=== PATIENT | male | born 1985 | race Caucasian/White ===

== ENCOUNTER 2021-02-17 11:24 | Emergency (ER) | payer BC, SELFPAY ==
--- NOTE | ~2021-02-17 | CT_ITS ---
EXAMINATION: CT ABDOMEN AND PELVIS WITH CONTRAST CLINICAL INFORMATION: Abdominal pain and vomiting x12 days. COMPARISON: CT abdomen and pelvis with IV contrast 03/01/2015 TECHNIQUE: Multidetector volumetric images were obtained from the superior aspect of the liver through the pubic symphysis following administration 85 mL of Omnipaque 350 intravenous contrast. Sagittal and coronal reformatted images were obtained on the technologist's workstation. Oral contrast: No This CT examination was performed using dose optimization techniques as appropriate, variously including the following: *Automated exposure control *Adjustment of mA and/or kV according to patient size (this includes techniques or standardized protocols for targeted exams where dose is matched to indication/reason for exam; i.e. extremities or head) *Use of iterative reconstruction technique DLP: 523 mGy-cm FINDINGS: LUNG BASES: The lung bases are clear. The heart size is normal. LIVER, GALLBLADDER, AND BILIARY TREE: The liver is normal in size, shape, and attenuation. A small scattered hypodensities seen in the liver most likely small cyst. The largest on series cyst measures in the left hepatic lobe, axial image 12/3. No intrahepatic ductal dilatation seen. The gallbladder is unremarkable with no evidence of radiopaque gallstones, gallbladder wall thickening, or obvious pericholecystic inflammatory changes. PANCREAS: Unremarkable. SPLEEN: Unremarkable. ADRENAL GLANDS: Unremarkable. KIDNEYS AND URETERS: The kidneys are normal in size, shape, and attenuation. No hydronephrosis, hydroureter, or calculi seen. No perinephric stranding. There is a 9 mm cyst in the midpole left kidney. BLADDER: Unremarkable. GASTROINTESTINAL TRACT: Scattered stool and gas seen throughout the colon without any significant distention. The small bowel loops are normal caliber. The appendix is normal caliber. No free air or free fluid seen. ABDOMINAL WALL: A small umbilical hernia containing fat is noted. LYMPH NODES: Normal. VASCULAR: Unremarkable. PELVIC VISCERA: Unremarkable. OSSEOUS STRUCTURES: Unremarkable. CT/CT abdomen pelvis w con IMPRESSION: No acute intra-abdominal process seen. Mild constipation. Likely small cyst midpole left kidney. This was visualized on the previous exams 2014 Multiple small scattered hypodense liver lesions likely cysts. These are unchanged to previous exam 2015.
[2021-02-17 11:29] VITALS: BP 121/83; PULSE 99; RESP 18; TEMP 36.1; O2SAT 99; BMI 23.7
--- NOTE | 2021-02-17 16:07 | ED.ABDPAIN ---
HPI - Abdominal Pain General Chief Complaint: Abdominal Pain Stated Complaint: VOMITING Time Seen by Provider: 02/17/21 14:08 Source: patient Mode of arrival: ambulatory Limitations: no limitations History of Present Illness HPI narrative: 35 yo male with no sig PMH notes GI illness with n/v that resolved over the weekend notes he seemed okay on Wednesday and Wednesday but he vomited again this AM so decided to get checked out, has no risk factors, no sick contacts, no food exposures MD elicited complaint: other (nausea/vomiting) Onset (ago): day(s) (12) Severity: moderate Exacerbating factors: eating Relieving factors: nothing Associated symptoms: nausea, vomiting and other (weakness) Related Data Previous Rx's Medication Instructions Recorded famotidine [Pepcid] 20 mg PO DAILY PRN #30 tab 02/17/21 metoclopramide HCl [Reglan] 10 mg PO Q6H PRN #20 tab 02/17/21 ondansetron 4 mg PO Q8H PRN #20 tab 02/17/21 Allergies Allergy/AdvReac Type Severity Reaction Status Date / Time No Known Drug Allergies Allergy Mild NONE Unverified 06/13/20 18:27 [NO KNOWN DRUG ALLERGIES] Review of Systems Review of Systems Constitutional : No Weight loss, No Fever, No Chills ENT/Mouth : No sore throat, No Rhinorrhea Eyes: No Swelling, No Redness Cardiovascular : No Chest Pain, No SOB, NoEdema Respiratory : No Cough, No Sputum, No Wheezing Gastrointestinal : Positive Nausea, Positive Vomiting, no Diarrhea, no abdominal Pain, No Hematochezia, No Melena Genitourinary : No Dysuria, No Urinary Frequency, No Hematuria, No Urgency Musculoskeletal : No joint pain, No Myalgias, No Joint Swelling Skin : No Skin Lesions, No rash Neuro : pos Weakness, No Numbness, No Dizziness, No Headache Psych : No Anxiety/Panic, No Depression Heme/Lymph: No Bruising, No Lymphadenopathy Endocrine : No Polyuria, No Polydipsia All other systems reviewed and are negative. Physical Exam Vital Signs: Vital Signs: Last Vital Signs Temp 97 F 02/17/21 11:29 Pulse 99 02/17/21 11:29 Resp 18 02/17/21 11:29 BP 121/83 02/17/21 11:29 Pulse Ox 99 02/17/21 11:29 Body Mass Index 23.7 Appearance: Alert. Oriented X3. No acute distress. Eyes: Pupils equal, round and reactive to light. ENT: Pharynx dry MM Neck: Normal inspection. Neck supple. CVS: Normal heart rate and rhythm. Pulses normal. Respiratory: No respiratory distress. Breath sounds normal. Abdomen: Soft and non-tender. Skin: Skin warm and dry. Normal skin color. Normal skin turgor. Extremities: No lower extremity edema. No calf ttp Neuro: Oriented X 3. No motor deficit. No sensory deficit. Course Course Course Narrative: no acute findings at this time, labs stable, VS stable, no acute findings on CT scan MDM - Abdominal Pain MDM Narrative Medical decision making narrative: 35 yo male with no sig PMH notes GI illness with n/v that resolved over the weekend notes he seemed okay on Wednesday and Wednesday but he vomited again this AM so decided to get checked out, has no risk factors, no sick contacts, no food exposures at this time will need labs, IVF x 2L, anti emetics, obtain CT scan for occult infection hx of diverticulitis - dispo per results and findings. Lab Data Result diagrams: 02/17/21 17:17 02/17/21 17:17 Labs: Lab Results 02/17/21 02/17/21 02/17/21 Range/Units 17:17 17:17 17:17 WBC 10.5 (4.8-10.8) X10*3/uL RBC 5.50 (4.60-5.80) X10*6/uL Hgb 16.6 (14.0-18.0) g/dl Hct 48.6 (42-52) % MCV 88.4 (80-98) fL MCH 30.2 (27.0-33.0) pg MCHC 34.2 (31.0-36.0) g/dl RDW 11.9 (11.0-16.0) % Plt Count 284 (160-400) X10*3/uL MPV 10.9 (9.4-12.4) fL Immature Gran % (Auto) 0.2 (0.0-0.4) % Neut % (Auto) 70.6 (45-73) % Lymph % (Auto) 18.4 L (20-40) % Brooks % (Auto) 9.3 (2-11) % Eos % (Auto) 1.2 (0-4) % Baso % (Auto) 0.3 (0-2) % Lymph # (Auto) 1.9 (1.2-4.9) X10*3/uL Brooks # (Auto) 1.0 (0.1-1.2) X10*3/uL Eos # (Auto) 0.1 (0.0-0.4) X10*3/uL Baso # (Auto) 0.0 (0.0-0.2) X10*3/uL Abs Immat Gran (auto) 0.02 (0.00-0.03) X10*3/uL Absolute Neuts (auto) 7.4 (2.0-8.3) X10*3/uL Absolute Nucleated RBC 0.000 (0.0-0.012) X10*3/uL Nucleated RBC % (auto) 0.0 (0.0-0.2) /100WBC Sodium 138 (135-145) mmol/L Potassium 3.8 (3.3-5.1) mmol/L Chloride 100 (96-108) mmol/L Carbon Dioxide 25 (22-29) mmol/L Anion Gap 17 (12-20) BUN 12 (9-16) mg/dL Creatinine 1.29 (0.5-1.4) mg/dL Estim Creat Clear Calc 93.8 Estimated GFR > 60 Random Glucose 87 (60-115) mg/dL Calcium 9.8 (8.4-10.2) mg/dL Magnesium (1.6-2.6) mg/dL Total Bilirubin 1.0 (0.0-1.0) mg/dL Direct Bilirubin 0.4 (0.0-0.5) mg/dL AST 19 (5-37) U/L ALT 20 (0-40) U/L Alkaline Phosphatase 51 (39-117) U/L Total Protein 7.1 (6.5-8.0) g/dL Albumin 4.5 (3.5-5.0) g/dL Lipase 18 (8-78) U/L COVID-19 (DAVID) Negative (Negative) COVID-19 Clin Com See Note 02/17/21 Range/Units 17:17 WBC (4.8-10.8) X10*3/uL RBC (4.60-5.80) X10*6/uL Hgb (14.0-18.0) g/dl Hct (42-52) % MCV (80-98) fL MCH (27.0-33.0) pg MCHC (31.0-36.0) g/dl RDW (11.0-16.0) % Plt Count (160-400) X10*3/uL MPV (9.4-12.4) fL Immature Gran % (Auto) (0.0-0.4) % Neut % (Auto) (45-73) % Lymph % (Auto) (20-40) % Brooks % (Auto) (2-11) % Eos % (Auto) (0-4) % Baso % (Auto) (0-2) % Lymph # (Auto) (1.2-4.9) X10*3/uL Brooks # (Auto) (0.1-1.2) X10*3/uL Eos # (Auto) (0.0-0.4) X10*3/uL Baso # (Auto) (0.0-0.2) X10*3/uL Abs Immat Gran (auto) (0.00-0.03) X10*3/uL Absolute Neuts (auto) (2.0-8.3) X10*3/uL Absolute Nucleated RBC (0.0-0.012) X10*3/uL Nucleated RBC % (auto) (0.0-0.2) /100WBC Sodium (135-145) mmol/L Potassium (3.3-5.1) mmol/L Chloride (96-108) mmol/L Carbon Dioxide (22-29) mmol/L Anion Gap (12-20) BUN (9-16) mg/dL Creatinine (0.5-1.4) mg/dL Estim Creat Clear Calc Estimated GFR Random Glucose (60-115) mg/dL Calcium (8.4-10.2) mg/dL Magnesium 2.4 (1.6-2.6) mg/dL Total Bilirubin (0.0-1.0) mg/dL Direct Bilirubin (0.0-0.5) mg/dL AST (5-37) U/L ALT (0-40) U/L Alkaline Phosphatase (39-117) U/L Total Protein (6.5-8.0) g/dL Albumin (3.5-5.0) g/dL Lipase (8-78) U/L COVID-19 (DAVID) (Negative) COVID-19 Clin Com Discharge Plan Discharge Clinical Impression: Vomiting Qualifiers: Vomiting type: unspecified Vomiting Intractability: non-intractable Nausea presence: with nausea Qualified Code(s): R11.2 - Nausea with vomiting, unspecified Patient Disposition: Home, Self-Care Instructions: Acute Nausea and Vomiting (ED) Additional Instructions: return to ED for any worsening symptoms or concerns Prescriptions: New ondansetron 4 mg tablet,disintegrating 4 mg PO Q8H PRN (Reason: nausea and vomiting) Qty: 20 RF: 0 metoclopramide HCl [Reglan] 10 mg tablet 10 mg PO Q6H PRN (Reason: nausea and vomiting) Qty: 20 RF: 0 famotidine [Pepcid] 20 mg tablet 20 mg PO DAILY PRN (Reason: abdominal discomfort) Qty: 30 RF: 0 Referrals: Physician,None [Primary Care Provider] - 2 days (PCP if not better) Stand Alone Forms: Work/School Release [facility] Past Medical History Attestation statement: The following information was validated with the patient. Medical History Diverticulitis Social History Social History Alcohol intake: never Smoking Status: Former smoker Use of substances other than those prescribed or required for medical reasons: No Advance Directives: No Advance Directives Information Provided: Yes
[2021-02-17 17:21] LABS: MANUAL DIFF FLAG NO
[2021-02-17 17:22] LABS: Basophils Percent Auto 0.3 % (0-2); Eosinophils Absolute Auto 0.1 X10*3/uL (0.0-0.4); Eosinophils Percent Auto 1.2 % (0-4); Hematocrit 48.6 % (42-52); Hemoglobin 16.6 g/dl (14.0-18.0); Imm Gran Abs Auto 0.02 X10*3/uL (0.00-0.03); Imm Gran Pct Auto 0.2 % (0.0-0.4); Lymphocytes Absolute Auto 1.9 X10*3/uL (1.2-4.9); Lymphocytes Percent Auto 18.4 % (20-40); Mean Corpuscular HGB Conc 34.2 g/dl (31.0-36.0); Mean Corpuscular Hemoglobin 30.2 pg (27.0-33.0); Mean Corpuscular Volume 88.4 fL (80-98); Mean Platelet Volume 10.9 fL (9.4-12.4); Monocytes Percent Auto 9.3 % (2-11); Neutrophils Absolute Auto 7.4 X10*3/uL (2.0-8.3); Neutrophils Percent Auto 70.6 % (45-73); Platelet Count 284 X10*3/uL (160-400); Red Cell Distribution Width 11.9 % (11.0-16.0); White Blood Count 10.5 X10*3/uL (4.8-10.8)
[2021-02-17] MEDS: 0.9 % Sodium Chloride 1,000 ML 999 ML IVCONT ×2 (17:22→17:23)
[2021-02-17] MEDS: Famotidine/PF 20 MG/2 ML VIAL IVPUSH (17:23)
[2021-02-17] MEDS: diphenhydrAMINE HCL 50 MG/ML VIAL 25 MG IVPUSH (17:23)
[2021-02-17] MEDS: Metoclopramide HCl 10 MG/2 ML VIAL IVPUSH (17:23)
[2021-02-17 17:53] LABS: Magnesium 2.4 mg/dL (1.6-2.6)
[2021-02-17 17:54] LABS: COVID-19 Test Negative (Negative)
[2021-02-17 19:20] LABS: Alanine Aminotransferase 20 U/L (0-40); Albumin Level 4.5 g/dL (3.5-5.0); Alkaline Phosphatase 51 U/L (39-117); Anion Gap 17 (12-20); Aspartate Amino Transferase 19 U/L (5-37); Bilirubin Direct 0.4 mg/dL (0.0-0.5); Blood Urea Nitrogen 12 mg/dL (9-16); Calcium 9.8 mg/dL (8.4-10.2); Carbon Dioxide 25 mmol/L (22-29); Chloride 100 mmol/L (96-108); Creatinine Clr Calc Pharmacy 93.8; Estimated Glomerular Filt Rate > 60; Glucose Random 87 mg/dL (60-115); Lipase 18 U/L (8-78); Potassium 3.8 mmol/L (3.3-5.1); Sodium 138 mmol/L (135-145); Total Protein 7.1 g/dL (6.5-8.0)
[2021-02-17] MEDS: iohexoL 350 MG/ML 100 ML INFUS..BTL IV (19:34)
[2021-02-17 20:46] VITALS: BP 123/74; PULSE 68; RESP 16; TEMP 36.6; O2SAT 99
--- NOTE | 2021-02-17 21:04 | PC.NURSE ---
PT TOLERATING PO INTAKE W/OUT DIFFICULTY.
== END 2021-02-17 21:19 | disposition home or self-care (01) ==
PROVIDERS: Emergency Medicine; Emergency Provider Emergency Medicine
DX: R11.2 Nausea with vomiting, unspecified (principal); Z20.822 Contact with and (suspected) exposure to COVID-19
CPT/HCPCS: 36415; 74177; 80048; 80076; 83690; 83735; 85025; 87635; 96361; 96374; 96375; 99284; J1200; J2765; Q9967

== ENCOUNTER 2024-01-09 15:07 | Emergency (ER) | payer BC, SELFPAY ==
--- NOTE | ~2024-01-09 | US_ITS ---
EXAMINATION: US ABDOMEN LIMITED CLINICAL INFORMATION: Right upper quadrant pain. COMPARISON: CT abdomen pelvis dated 02/17/2021. TECHNIQUE: Real-time imaging of the right upper quadrant abdominal viscera. FINDINGS: PANCREAS: Normal in appearance. LIVER: The liver is normal in size. The liver contour is normal. Parenchymal echogenicity is normal. There is a 0.3 cm cyst within the left lobe. There is a 0.6 cm cyst within the right lobe. There is no intrahepatic biliary duct dilatation seen. GALLBLADDER: The gallbladder is physiologically distended without evidence of stones, sludge, polyps, wall thickening or pericholecystic fluid. There is a moderate amount of echogenic bile within the gallbladder. The sonographic Ibrahim's sign is reported as negative. COMMON BILE DUCT: Normal in caliber measuring 0.2 cm in diameter. RIGHT KIDNEY: No hydronephrosis. No renal calculi or focal parenchymal lesions. The kidney measures 11.5 cm in maximum dimension. FREE FLUID: None. US/US abdomen limited IMPRESSION: There is a moderate amount of echogenic bile layering within the gallbladder. The sonographic appearance of the gallbladder is otherwise within normal limits. The sonographic Ibrahim's sign is reported as negative. Small, likely stable compared with previous CT examination, liver cysts as described.
[2024-01-09 15:34] VITALS: BP 124/85; PULSE 84; RESP 16; TEMP 36.6; O2SAT 99; BMI 25.3
--- NOTE | 2024-01-09 15:34 | ED.ABDPAIN ---
HPI - Abdominal Pain General Chief Complaint: Nausea/Vomiting/Diarrhea Stated Complaint: vomiting Time Seen by Provider: 01/09/24 17:25 Source: patient and RN notes reviewed Mode of arrival: ambulatory Limitations: no limitations History of Present Illness HPI narrative: This is a 38-year-old male, with no known medical problems, who presents emergency department with ongoing nausea, vomiting, and epigastric pain x 1 week. Patient states that last week 1 day prior to his symptom onset he ate [employer]. He states that he has had intermittent nausea, and vomiting. No diarrhea or constipation. He denies any fevers, chills, chest pain, shortness of breath, cough, urinary symptoms. Denies any sick contacts. No other complaints or concerns at this time. MD elicited complaint: abdominal pain Location: none Quality: cramping Radiation: RUQ Migration to: no migration Exacerbating factors: nothing Relieving factors: nothing Associated symptoms: denies other symptoms Related Data Previous Rx's ?Medication ?Instructions ?Recorded famotidine 20 mg tablet (Pepcid) 20 mg PO DAILY PRN abdominal 02/17/21 discomfort #30 tabs metoclopramide HCl 10 mg tablet 10 mg PO Q6H PRN nausea and 02/17/21 (Reglan) vomiting #20 tabs ondansetron 4 mg disintegrating 4 mg PO Q8H PRN nausea and 02/17/21 tablet vomiting #20 tabs ondansetron 4 mg disintegrating 4 mg PO Q8H PRN nausea and 01/09/24 tablet vomiting 5 days #10 tabs Allergies Allergy/AdvReac Type Severity Reaction Status Date / Time No Known Drug Allergies Allergy Mild NONE Verified 01/09/24 15:35 [NO KNOWN DRUG ALLERGIES] Review of Systems Review of Systems Yes all other systems are reviewed and are negative Constitutional: Reports as per [facility] Past Medical History Attestation statement: The following information was validated with the patient. Medical History Diverticulitis Social History Social History Alcohol intake: never Advance Directives: No Advance Directives Information Provided: No Physical Exam ED Vital Signs: Vital Signs - 24 hr 01/09/24 19:48 01/09/24 20:20 Temperature 97.9 F 97.9 F Pulse Rate 62 62 Respiratory Rate 18 18 Blood Pressure 124/62 124/62 Pulse Oximetry 99 99 Oxygen Delivery Method Room Air Room Air BMI result Body Mass Index 25.3 Const General: cooperative, comfortable and no acute distress Orientation/consciousness: patient oriented x3 Limitations: no limitations HENMT Head: Yes normal to inspection, Yes normocephalic and Yes atraumatic Ears: hearing grossly normal bilaterally General nose exam: Normal external nose present Face and sinus: Yes normal facial exam Mouth: Normal oral and palatal mucosa present, oropharynx normal and moist mucous membranes Throat: Yes posterior oropharynx normal Eyes General: appearance normal, both eyes and all related structures Eyelids: Yes eyelids normal Conjunctivae: conjunctivae normal Sclerae: sclerae normal Pupils: Equal, round and reactive pupils present EOM: EOMs intact bilaterally Neck Neck: Yes normal visual inspection, Yes full ROM and Yes no lymphadenopathy Lymphatic: no lymphadenopathy noted Chest Chest palpation & inspection: normal inspection of the chest Resp Effort & Inspection: normal respiratory effort and able to speak in complete sentences Auscultation: clear to auscultation bilaterally, no crackles, no rales, no rhonchi and no wheezes Cardio Rate: regular rate Rhythm: regular rhythm Heart sounds: S1 normal heart sound present and S2 normal heart sound present GI Other: Mild epigastric tenderness and right upper quadrant tenderness rebound or guarding Inspection: Yes normal to inspection Skin General skin exam: no rashes or lesions noted Trauma: no lacerations or abrasions Wounds: no wounds Neuro General: patient oriented x3 and moves all extremities Cranial nerves: Yes Equal, round and reactive pupils present Extrem General: Yes normal to inspection Right upper extremity: normal to inspection Left upper extremity: normal to inspection Right lower extremity: normal to inspection Left lower extremity: normal to inspection Course Course Course Narrative: This is an RME: Additional HPI, ROS, PE not included below will be deferred to primary provider. Patient is a 38-year-old male who presents emergency department for evaluation of vomiting 3 or 4 times daily and diffuse ABD pain x 1 week, at times occurs after eating, but also vomiting without eating. Denies fevers, constipation, diarrhea. Reports a history of a similar episode 3 years ago Plan: labs, viral testing, urinalysis Reevaluation(s) Reevaluation #1: Patient has likely leukocytosis at 14.3, chemistry nondiagnostic, lipase within normal limits. Ultrasound was obtained, revealing no evidence of cholecystitis, there is bile in the gallbladder however otherwise unremarkable. Discussed findings with patient. He is feeling much better after receiving IV fluids and Zofran. Given prescription for Zofran as well as return precautions. He understands and agrees with plan. Vital signs stable. He is nontoxic appearing, patient stable for discharge Medical Decision Making Medical Decision Making [facility] Narrative: This is a 38-year-old male, with no known medical problems, who presents emergency department with complaints of vomiting, nausea, and mid abdominal pain for the last week. On arrival, vital signs within normal limits. He is nontoxic appearing, speaking full sentences. He is afebrile. Abdomen is soft, however with tenderness palpation in the right upper quadrant. No rebound or guarding. Differential diagnoses include gastritis, gastroenteritis, peptic ulcer Differential Diagnosis Differential Diagnoses: The differential diagnosis associated with the presentation includes See above Lab Data [facility] Lab Attestation statement: I reviewed the patient's lab results. Slight leukocytosis at 14.3k, likely reactive secondary to nausea and vomiting 01/09/24 15:56 01/09/24 15:56 Labs: Lab Results 01/09/24 Range/Units 15:56 WBC 14.3 H (4.8-10.8) X10*3/uL RBC 5.46 (4.60-5.80) X10*6/uL Hgb 16.5 (14.0-18.0) g/dl Hct 47.5 (42.0-52.0) % MCV 87.0 (80.0-98.0) fL MCH 30.2 (27.0-33.0) pg MCHC 34.7 (31.0-36.0) g/dl RDW 11.8 (11.0-16.0) % Plt Count 311 (160-400) X10*3/uL MPV 10.8 (9.4-12.4) fL Immature Gran % (Auto) 0.5 H (0.0-0.4) % Neut % (Auto) 71.5 (45-73) % Lymph % (Auto) 16.3 L (20-40) % Sanders % (Auto) 10.5 (2-11) % Eos % (Auto) 0.9 (0-4) % Baso % (Auto) 0.3 (0-2) % Lymph # (Auto) 2.3 (1.2-4.9) X10*3/uL Sanders # (Auto) 1.5 H (0.1-1.2) X10*3/uL Eos # (Auto) 0.1 (0.0-0.4) X10*3/uL Baso # (Auto) 0.0 (0.0-0.2) X10*3/uL Abs Immat Gran (auto) 0.07 H (0.00-0.03) X10*3/uL Absolute Neuts (auto) 10.2 H (2.0-8.3) x10*3/uL Absolute Nucleated RBC 0.000 (0.0-0.012) X10*3/uL Nucleated RBC % (auto) 0.0 (0.0-0.2) /100WBC Sodium 138 (135-145) mmol/L Potassium 3.7 (3.3-5.1) mmol/L Chloride 99 (96-108) mmol/L Carbon Dioxide 27 (22-29) mmol/L Anion Gap 16 (12-20) BUN 17 H (9-16) mg/dL Creatinine 1.24 (0.5-1.4) mg/dL Estim Creat Clear Calc 97.4 Estimated GFR > 60 Random Glucose 110 (60-115) mg/dL Calcium 9.6 (8.4-10.2) mg/dL Magnesium 2.3 (1.6-2.6) mg/dL Total Bilirubin 0.9 (0.0-1.0) mg/dL AST 32 (5-37) U/L ALT 28 (0-40) U/L Alkaline Phosphatase 50 (39-117) U/L Total Protein 7.4 (6.5-8.0) g/dL Albumin 4.2 (3.5-5.0) g/dL Lipase 22 (8-78) U/L Urine Color Dark Yellow Urine Appearance Clear Urine pH 6.0 (5.0-9.0) Ur Specific [place] >= 1.030 H (1.005-1.025) Urine Protein 30 (1+) H (Neg-Trace) mg/dL Urine Glucose (UA) Negative (Negative) mg/dL Urine Ketones 40 (Negative) mg/dL Urine Blood Negative (Negative) Urine Nitrite Negative (Negative) Ur Leukocyte Esterase Trace H (Negative) Urine RBC 0-2 (0-2) /HPF Urine WBC 0-5 (0-5) /HPF Ur Squamous Epith Cells 0-2 (0-2) /HPF Urine Bacteria None Seen (None Seen) Hyaline Casts 3-5 (0-2) /LPF Influenza Type A (PCR) NEGATIVE (Negative) Influenza Type B (PCR) NEGATIVE (Negative) RSV RNA Qual (PCR) NEGATIVE (Negative) SARS-CoV-2 RNA (RT-PCR) NEGATIVE (Negative) Radiology Impression Discussion of test interpretation with radiology: I have reviewed the radiologist's reading. Radiologist Impression: US/US abdomen limited IMPRESSION: There is a moderate amount of echogenic bile layering within the gallbladder. The sonographic appearance of the gallbladder is otherwise within normal limits. The sonographic Ibrahim's sign is reported as negative. Small, likely stable compared with previous CT examination, liver cysts as described. Dictated By: Javi Busby Jr DO Medications Administered Discontinued Medications Generic Name Dose Route Start Last Admin Trade Name Freq PRN Reason Stop Dose Admin Sodium Chloride 1,000 mls @ 999 mls/hr 01/09/24 17:45 01/09/24 20:20 Ns IVCONT 01/09/24 19:45 Infused .Q1H1M GARRY Infusion Ondansetron HCl 4 mg 01/09/24 17:44 01/09/24 18:02 Ondansetron Hcl 4 Mg/2 Ml Vial IVPUSH 01/09/24 17:45 4 mg ONCE ONE Administration Discharge Plan Discharge Clinical Impression: Gastroenteritis Patient Disposition: Home, Self-Care Instructions: Acute Nausea and Vomiting (ED) Additional Instructions: You were seen in the emergency department due to nausea and abdominal pain. Your labs are reassuring. Your ultrasound was normal. Drink plenty of fluids get plenty of rest. Take Zofran as needed for nausea. Stick to a bland diet, avoid spicy or fried foods. Advance your diet as tolerated. If any new or worsening symptoms occur including but not limited to worsening pain, inability to eat or drink secondary to nausea and vomiting, chest pain, shortness of breath, please return for re-evaluation. If you continue to have symptoms, please follow-up with the GI specialist. It is also very important for you to find a primary care physician. Prescriptions: New ondansetron 4 mg tablet,disintegrating 4 mg PO Q8H PRN (Reason: nausea and vomiting) 5 Days Qty: 10 0RF No Action ondansetron 4 mg tablet,disintegrating 4 mg PO Q8H PRN (Reason: nausea and vomiting) Qty: 20 0RF metoclopramide HCl [Reglan] 10 mg tablet 10 mg PO Q6H PRN (Reason: nausea and vomiting) Qty: 20 0RF famotidine [Pepcid] 20 mg tablet 20 mg PO DAILY PRN (Reason: abdominal discomfort) Qty: 30 0RF Referrals: [facility] Gastroenterology Services [Provider Group] Stand Alone Forms: Work/School Release Interventions: ED Discharge Assessment Last Done: 01/09/24 20:20 Discharge Date/Time: 01/09/24 20:20 Print Language: Romanian
[2024-01-09 16:02] LABS: MANUAL DIFF FLAG NO
[2024-01-09 16:07] LABS: Basophils Percent Auto 0.3 % (0-2); Eosinophils Absolute Auto 0.1 X10*3/uL (0.0-0.4); Eosinophils Percent Auto 0.9 % (0-4); Hematocrit 47.5 % (42.0-52.0); Hemoglobin 16.5 g/dl (14.0-18.0); Imm Gran Abs Auto 0.07 X10*3/uL (0.00-0.03); Imm Gran Pct Auto 0.5 % (0.0-0.4); Lymphocytes Absolute Auto 2.3 X10*3/uL (1.2-4.9); Lymphocytes Percent Auto 16.3 % (20-40); Mean Corpuscular HGB Conc 34.7 g/dl (31.0-36.0); Mean Corpuscular Hemoglobin 30.2 pg (27.0-33.0); Mean Platelet Volume 10.8 fL (9.4-12.4); Monocytes Absolute Auto 1.5 X10*3/uL (0.1-1.2); Monocytes Percent Auto 10.5 % (2-11); Neutrophils Absolute Auto 10.2 x10*3/uL (2.0-8.3); Neutrophils Percent Auto 71.5 % (45-73); Platelet Count 311 X10*3/uL (160-400); Red Blood Count 5.46 X10*6/uL (4.60-5.80); Red Cell Distribution Width 11.8 % (11.0-16.0); White Blood Count 14.3 X10*3/uL (4.8-10.8)
[2024-01-09 16:09] LABS: Appearance Urine Clear; Color Urine Dark Yellow; Glucose Urine UA Negative (Negative); Leukocyte Esterase Urine Trace (Negative); Nitrite Urine Negative (Negative); Specific Gravity - Urine >= 1.030 (1.005-1.025); UMIC TRIGGER UACC YES; Urine Blood Negative (Negative); Urine Ketones 40 mg/dL (Negative); Urine Protein 30 (1+) mg/dL (Neg-Trace)
[2024-01-09 16:14] LABS: Bacteria Urine None Seen (None Seen); RBC Urine 0-2 /HPF (0-2); Squamous Epithelial Cell Urine 0-2 /HPF (0-2); WBC Urine 0-5 /HPF (0-5)
[2024-01-09 17:09] VITALS: BP 132/83; PULSE 70; RESP 19; TEMP 37.1; O2SAT 98
[2024-01-09 17:31] LABS: Alanine Aminotransferase 28 U/L (0-40); Albumin Level 4.2 g/dL (3.5-5.0); Alkaline Phosphatase 50 U/L (39-117); Anion Gap 16 (12-20); Aspartate Amino Transferase 32 U/L (5-37); Bilirubin Total 0.9 mg/dL (0.0-1.0); Blood Urea Nitrogen 17 mg/dL (9-16); Calcium 9.6 mg/dL (8.4-10.2); Carbon Dioxide 27 mmol/L (22-29); Chloride 99 mmol/L (96-108); Creatinine Clr Calc Pharmacy 97.4; Estimated Glomerular Filt Rate > 60; Glucose Random 110 mg/dL (60-115); Lipase 22 U/L (8-78); Magnesium 2.3 mg/dL (1.6-2.6); Potassium 3.7 mmol/L (3.3-5.1); Sodium 138 mmol/L (135-145); Total Protein 7.4 g/dL (6.5-8.0)
[2024-01-09] MEDS: 0.9 % Sodium Chloride 1,000 ML 999 ML IVCONT ×2 (18:02→19:35)
[2024-01-09] MEDS: ondansetron HCL 4 MG/2 ML VIAL IVPUSH (18:02)
[2024-01-09 19:07] LABS: Influenza A PCR NEGATIVE (Negative); Influenza B PCR NEGATIVE (Negative); Resp Syncy Virus RNA Qual PCR NEGATIVE (Negative); SARS COV2 PCR INHOUSE NEGATIVE (Negative)
[2024-01-09 19:48] VITALS: BP 124/62; PULSE 62; RESP 18; TEMP 36.6; O2SAT 99
[2024-01-09 20:20] VITALS: BP 124/62; PULSE 62; RESP 18; TEMP 36.6; O2SAT 99
== END 2024-01-09 20:20 | disposition home or self-care (01) ==
PROVIDERS: Nurse Practitioner Family; Emergency Provider Emergency Medicine
DX: K52.9 Noninfective gastroenteritis and colitis, unspecified (principal); Z03.818 Encounter for observation for suspected exposure to other biological agents ruled out
CPT/HCPCS: 0241U; 76705; 80053; 81001; 83690; 83735; 85025; 96361; 96374; 99284; J2405

== ENCOUNTER 2024-04-01 14:27 | Inpatient (IN) | payer BC, SELFPAY ==
--- NOTE | ~2024-04-01 | XR_ITS ---
EXAMINATION: XR HAND/WRIST, RIGHT CLINICAL INFORMATION: Cat bite COMPARISON: None TECHNIQUE: 7 views of the right hand and wrist. FINDINGS: There is diffuse soft tissue swelling about the hand. No radiopaque foreign body or soft tissue gas. Underlying bony structures are unremarkable. No acute fracture or dislocation. No bony destructive lesions or periosteal reaction. XR/XR hand wrist RT IMPRESSION: Diffuse soft tissue swelling about the hand. No radiopaque foreign body or soft tissue gas.
--- NOTE | ~2024-04-01 | CT_ITS ---
EXAMINATION: CT HAND WITH CONTRAST, RIGHT CLINICAL INFORMATION: Cat bite, evaluate for abscess COMPARISON: Radiograph from the same day TECHNIQUE: Multidetector axial images were obtained through the left tibia/fibula. Coronal and sagittal reformats were obtained at an independent workstation This CT examination was performed using dose optimization techniques as appropriate, variously including the following: *Automated exposure control *Adjustment of mA and/or kV according to patient size (this includes techniques or standardized protocols for targeted exams where dose is matched to indication/reason for exam; i.e. extremities or head) *Use of iterative reconstruction technique DLP: 116 mGy-cm FINDINGS: The bones of right wrist and hand are normal and without evidence of erosion or periosteal reaction to suggest osteomyelitis. No acute fractures or dislocation. There is no fluid collection to suggest hematoma or abscess. There is mild soft tissue haziness over the dorsum of the hand corresponding to diffuse edema. No joint effusion. Alignment is anatomic. Joint spaces are well maintained. No abnormal soft tissue calcification. CT/CT hand RT w IV con IMPRESSION: Mild soft tissue haziness over the dorsum of the hand corresponding to diffuse edema. No fluid collection to suggest hematoma or abscess. No evidence of osteomyelitis.
--- NOTE | 2024-04-01 14:30 | ED.UPPEXIN ---
HPI - Extremity Injury (Upper) General Chief Complaint: Animal Bite Stated Complaint: r hand inj Time Seen by Provider: 04/01/24 16:04 Source: patient Mode of arrival: ambulatory Limitations: no limitations History of Present Illness ED Provider: Yecenia Franco PA-C HPI narrative: Patient is a 38 year old assigned male at with no reported medical history presenting to the emergency department today with right hand pain. Patient states that 3 days ago he was playing around with his indoor cat when he bit him. Patient states that the cat is up to date on vaccinations. Patient states that as time has gone on he has had increasing difficulty moving his hand and it is now much more painful. Patient denies any dizziness, lightheadedness, abdominal pain, nausea, vomiting, fever, chills, blurry vision, double vision, loss of vision, chest pain, difficulty breathing, shortness of breath, back pain, night sweats, pain with urination, increased urinary frequency, increased urinary urgency, blood in his urine or stool, syncope or a near syncopal episode, bowel incontinence, bladder incontinence, or any other complaints at this time. MD complaint: injury to: right and hand Onset (ago): day(s) (3) Handedness: right Place: home Severity: moderate Severity scale (1-10): 5 Relieving factors: none Exacerbating factors: movement of extremity Context: animal bite Associated symptoms: denies other symptoms Related Data Previous Rx's ?Medication ?Instructions ?Recorded famotidine 20 mg tablet (Pepcid) 20 mg PO DAILY PRN abdominal 02/17/21 discomfort #30 tabs metoclopramide HCl 10 mg tablet 10 mg PO Q6H PRN nausea and 02/17/21 (Reglan) vomiting #20 tabs ondansetron 4 mg disintegrating 4 mg PO Q8H PRN nausea and 02/17/21 tablet vomiting #20 tabs ondansetron 4 mg disintegrating 4 mg PO Q8H PRN nausea and 01/09/24 tablet vomiting 5 days #10 tabs Allergies Allergy/AdvReac Type Severity Reaction Status Date / Time No Known Drug Allergies Allergy Mild NONE Verified 04/01/24 14:33 [NO KNOWN DRUG ALLERGIES] Review of Systems Constitutional: Constitutional: Reports no additional constitutional complaints, Denies chills, Denies fever(s) and Denies night sweats Eyes: Eyes: Reports no additional eye complaints, Denies blurry vision, Denies change in vision, Denies diplopia, Denies eye discharge, Denies loss of vision and Denies eye pain ENT: Denies dizziness Cardiovascular: Cardiovascular: Reports no additional cardiovascular complaints, Denies chest pain, Denies lightheadedness, Denies Loss of Consciousness and Denies dyspnea Respiratory: Respiratory: Reports no additional respiratory complaints and Denies dyspnea Gastrointestinal: Gastrointestinal: Reports no additional gastrointestinal complaints, Denies abdominal pain, Denies melena, Denies hematochezia, Denies change in bowel habits and Denies change in stool character Genitourinary: Genitourinary: Reports no additional male genitourinary complaints, Denies hematuria, Denies oliguria, Denies difficulty urinating, Denies dysuria, Denies urinary frequency, Denies urinary hesitancy, Denies urinary incontinence and Denies urinary urgency Musculoskeletal: Musculoskeletal: Reports no additional musculoskeletal complaints, Denies numbness and Denies tingling Comments: right hand pain, right hand swelling Neurologic: Denies dizziness, Denies loss of vision, Denies numbness and Denies tingling Psychiatric: Psychiatric: Reports no additional psychiatric complaints Endocrine: Endocrine: Reports no additional endocrine complaints Hematologic/Lymphatic: Hematologic/Lymphatic: Reports no additional hematologic/lymphatic complaints Allergic/Immunologic: Allergic/Immunologic: Reports no additional allergic/immunologic complaints [facility] Past Medical History Attestation statement: The following information was validated with the patient. Source: old records reviewed and nursing notes reviewed Medical History Diverticulitis Social History Social History Alcohol intake: never Smoked in Last 30 Days: No Use of substances other than those prescribed or required for medical reasons: Yes Substance Use Type: Marijuana Substance Use Frequency: Occasionally Advance Directives: No Advance Directives Information Provided: No Do you have a plan to hurt others: No Plan Physical Exam Vital Signs: Vital Signs: Last Vital Signs Temp 97.9 F 04/01/24 14:32 Pulse 84 04/01/24 14:32 Resp 16 04/01/24 14:32 BP 142/88 H 04/01/24 14:32 Pulse Ox 99 04/01/24 14:32 O2 Del Method Room Air 04/01/24 14:32 BMI result Body Mass Index 25.6 Const: General: cooperative, no acute distress, alert and awake Nutritional Appearance: well nourished Orientation/consciousness: patient oriented x3 Limitations: no limitations HEENT: Head: Yes normal to inspection and Yes atraumatic Ears: hearing grossly normal bilaterally and external ears normal General nose exam: Normal external nose present, no nasal discharge noted and no epistaxis Face and sinus: Yes normal facial exam, No abrasion and No laceration Mouth: Normal oral and palatal mucosa present, no drooling and no muffled voice Eyes: General: appearance normal, both eyes and all related structures Periorbital: periorbital findings normal Eyelids: Yes eyelids normal Conjunctivae: conjunctivae normal Pupils: Equal, round and reactive pupils present EOM: EOMs intact bilaterally Neck: Neck: Yes normal visual inspection, Yes full ROM and Yes no lymphadenopathy Chest: Chest palpation & inspection: normal inspection of the chest Resp: Effort & Inspection: normal respiratory effort and able to speak in complete sentences GI: Inspection: Yes normal to inspection Neuro: General: patient oriented x3 and moves all extremities Cranial nerves: Yes Equal, round and reactive pupils present Cognition (Neuro): normal cognition Extrem: Other: significant swelling to the dorsal aspect of the right hand, unable to fully close the right hand secondary to pain, erythema present to the dorsal MCP of the 3rd, 4th, and 5th digits of the right hand General: Yes capillary refill normal Psych: Appearance: grossly normal Mental Status: mental status grossly normal Affect: normal affect Attitude: cooperative Thought process: Normal thought process present Thought content: Normal thought content present Insight: Good insight present (Psych) Course Course Course Narrative: This is a Rapid Medical Examination (RME) performed by Tyrel Mcarthur PA-C in triage. Full HPI, ROS, assessment and treatment plan per primary provider in the Main ED. 38 yo male here for eval of car bite to right hand x72 hours. reports attempting to separate his cat and his girlfriends cat when his cat latched onto his right hand and began biting/ scratching. reports increasing pain/ redness to hand with shooting pains up his right arm. unsure if cats vaccines are UTD. 4 puncture wounds noted to dorsal aspect of right hand with multiple abrasions/ scratches to radial aspect of hand/wrist. Unable to fully animal care technician. Limited ROM to right wrist and all digits. No streaking. Plan: labs, xr, blood cultures Medications Administered Discontinued Medications Generic Name Dose Route Start Last Admin Trade Name Hbeert PRN Reason Stop Dose Admin Piperacillin Sod/Tazobactam 50 mls @ 100 mls/hr 04/01/24 16:23 04/01/24 16:57 Sod 3.375 gm/ Sodium Chloride IV 04/01/24 16:52 100 mls/hr ONCE ONE Administration Medical Decision Making Medical Decision Making MDM Narrative: Patient is a 38 year old assigned male at with no reported medical history presenting to the emergency department today with right hand pain. Patient's physical exam was as noted in the physical exam portion of this note. Patient's blood work showed an elevated WBC count of 14.7 but was otherwise unremarkable. Patient's right hand x-ray showed no acute willow process. I consulted with orthopedics who recommended medical admission with IV antibiotics. I spoke to the hospitalist team who agreed to admission. Patient's clinical presentation is not consistent with sepsis (@1630). Patient was given IV Zosyn. I explained my physical exam findings as well as all test results to the patient. I answered all questions asked by the patient. Patient verbalized agreement and understanding with this treatment plan and admission. Differential Diagnosis Differential Diagnoses: The differential diagnosis associated with the presentation includes Cat bite Cellulitis Hand injury Admission/Observation Consideration of admission/observation: Escalation of care including admission/observation considered Patient admitted. Consult Healthcare Provider Management of the patient was discussed with: Hospitalist (agreed to admission as noted in the MDM Rationale portion of this note.) and Wet End Tester (spoke to the orthopedic team as noted in the MDM Rationale portion of this note.) Lab Data [facility] Lab Attestation statement: I reviewed the patient's lab results. My interpretation of these results are in the MDM Rationale portion of this note. 04/01/24 15:03 04/01/24 15:03 Labs: Lab Results 04/01/24 Range/Units 15:03 WBC 14.7 H (4.8-10.8) X10*3/uL RBC 5.28 (4.60-5.80) X10*6/uL Hgb 15.8 (14.0-18.0) g/dl Hct 46.2 (42.0-52.0) % MCV 87.5 (80.0-98.0) fL MCH 29.9 (27.0-33.0) pg MCHC 34.2 (31.0-36.0) g/dl RDW 12.3 (11.0-16.0) % Plt Count 289 (160-400) X10*3/uL MPV 10.6 (9.4-12.4) fL Immature Gran % (Auto) 0.3 (0.0-0.4) % Neut % (Auto) 75.4 H (45-73) % Lymph % (Auto) 14.8 L (20-40) % [place] % (Auto) 7.6 (2-11) % Eos % (Auto) 1.6 (0-4) % Baso % (Auto) 0.3 (0-2) % Lymph # (Auto) 2.2 (1.2-4.9) X10*3/uL [place] # (Auto) 1.1 (0.1-1.2) X10*3/uL Eos # (Auto) 0.2 (0.0-0.4) X10*3/uL Baso # (Auto) 0.0 (0.0-0.2) X10*3/uL Abs Immat Gran (auto) 0.05 H (0.00-0.03) X10*3/uL Absolute Neuts (auto) 11.1 H (2.0-8.3) x10*3/uL Absolute Nucleated RBC 0.000 (0.0-0.012) X10*3/uL Nucleated RBC % (auto) 0.0 (0.0-0.2) /100WBC Sodium 142 (135-145) mmol/L Potassium 3.8 (3.3-5.1) mmol/L Chloride 105 (96-108) mmol/L Carbon Dioxide 26 (22-29) mmol/L Anion Gap 15 (12-20) BUN 13 (9-16) mg/dL Creatinine 1.13 (0.5-1.4) mg/dL Estim Creat Clear Calc 106.9 Estimated GFR > 60 Random Glucose 98 (60-115) mg/dL Calcium 9.6 (8.4-10.2) mg/dL Total Bilirubin 0.5 (0.0-1.0) mg/dL AST 15 (5-37) U/L ALT 8 (0-40) U/L Alkaline Phosphatase 56 (39-117) U/L Total Protein 8.5 H (6.5-8.0) g/dL Albumin 4.6 (3.5-5.0) g/dL Independent Interpretation I performed an independent interpretation of an: Plain X-Ray Interpretation: My interpretation is in agreement with the radiologist's impression of this imaging study. EXAMINATION: XR HAND/WRIST, RIGHT CLINICAL INFORMATION: Cat bite COMPARISON: None TECHNIQUE: 7 views of the right hand and wrist. FINDINGS: There is diffuse soft tissue swelling about the hand. No radiopaque foreign body or soft tissue gas. Underlying bony structures are unremarkable. No acute fracture or dislocation. No bony destructive lesions or periosteal reaction. XR/XR hand wrist RT IMPRESSION: Diffuse soft tissue swelling about the hand. No radiopaque foreign body or soft tissue gas. Dictated By: Luisito Baker MD Signed By: Electronically signed by Luisito Baker MD 04/01/24 1985 Radiology Impression Discussion of test interpretation with radiology: I have reviewed the radiologist's reading. Critical Care Time Critical Care Time Critical Care Time: Yes Total Critical Care Time: 32 Attestation: I spent 32 minutes of Critical Care Time with this patient. This does not include time spent on separately reported billable procedures. Discharge Plan Discharge Clinical Impression: Cat bite, Cellulitis Patient Disposition: Admitted As Inpatient Prescriptions: No Action ondansetron 4 mg tablet,disintegrating 4 mg PO Q8H PRN (Reason: nausea and vomiting) Qty: 20 0RF metoclopramide HCl [Reglan] 10 mg tablet 10 mg PO Q6H PRN (Reason: nausea and vomiting) Qty: 20 0RF famotidine [Pepcid] 20 mg tablet 20 mg PO DAILY PRN (Reason: abdominal discomfort) Qty: 30 0RF ondansetron 4 mg tablet,disintegrating 4 mg PO Q8H PRN (Reason: nausea and vomiting) 5 Days Qty: 10 0RF Print Language: Greek
[2024-04-01 14:32] VITALS: BP 142/88; PULSE 84; RESP 16; TEMP 36.6; O2SAT 99; BMI 25.6
[2024-04-01 15:13] LABS: MANUAL DIFF FLAG NO
[2024-04-01 15:14] LABS: Basophils Percent Auto 0.3 % (0-2); Eosinophils Absolute Auto 0.2 X10*3/uL (0.0-0.4); Eosinophils Percent Auto 1.6 % (0-4); Hematocrit 46.2 % (42.0-52.0); Hemoglobin 15.8 g/dl (14.0-18.0); Imm Gran Abs Auto 0.05 X10*3/uL (0.00-0.03); Imm Gran Pct Auto 0.3 % (0.0-0.4); Lymphocytes Absolute Auto 2.2 X10*3/uL (1.2-4.9); Lymphocytes Percent Auto 14.8 % (20-40); Mean Corpuscular HGB Conc 34.2 g/dl (31.0-36.0); Mean Corpuscular Hemoglobin 29.9 pg (27.0-33.0); Mean Corpuscular Volume 87.5 fL (80.0-98.0); Mean Platelet Volume 10.6 fL (9.4-12.4); Monocytes Absolute Auto 1.1 X10*3/uL (0.1-1.2); Monocytes Percent Auto 7.6 % (2-11); Neutrophils Absolute Auto 11.1 x10*3/uL (2.0-8.3); Neutrophils Percent Auto 75.4 % (45-73); Platelet Count 289 X10*3/uL (160-400); Red Blood Count 5.28 X10*6/uL (4.60-5.80); Red Cell Distribution Width 12.3 % (11.0-16.0); White Blood Count 14.7 X10*3/uL (4.8-10.8)
[2024-04-01 15:31] LABS: Alanine Aminotransferase 8 U/L (0-40); Albumin Level 4.6 g/dL (3.5-5.0); Alkaline Phosphatase 56 U/L (39-117); Anion Gap 15 (12-20); Aspartate Amino Transferase 15 U/L (5-37); Bilirubin Total 0.5 mg/dL (0.0-1.0); Blood Urea Nitrogen 13 mg/dL (9-16); Calcium 9.6 mg/dL (8.4-10.2); Carbon Dioxide 26 mmol/L (22-29); Chloride 105 mmol/L (96-108); Creatinine Clr Calc Pharmacy 106.9; Estimated Glomerular Filt Rate > 60; Glucose Random 98 mg/dL (60-115); Potassium 3.8 mmol/L (3.3-5.1); Sodium 142 mmol/L (135-145); Total Protein 8.5 g/dL (6.5-8.0)
[2024-04-01] MEDS: Piperacillin Sodium/Tazobactam 3.375 GM in 0.9 % Sodium Chloride 50 ML IV (16:57)
--- NOTE | 2024-04-01 17:23 | P.HPHOSP_ITS ---
History of Present Illness Date of Service: 04/01/24 Attending physician on admission: Karthik Hurst Chief Complaint: cat bite 38-year-old male with out any significant past medical history presented to the ED earlier today for evaluation of cat bite to the dorsum of the right hand that occurred 3 days ago. He reports his strictly indoor cat, whose last rabies vaccine was 5 years ago, got into a fight with his girlfriend's CT, vaccine status unknown but also strictly indoor cat. He attempted to separate the 2 fighting animals and was bit by his own cat on the dorsum of the right hand. He is right-hand dominant. He began noticing redness and swelling yesterday that significantly worsened today prompting his visit to the ER. Reports cats have otherwise been behaving normally. Denies any purulent drainage or fevers. 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 He has a leukocytosis of 14.7. He is afebrile, vitals stable. Renal function electrolytes normal. X-ray of the right hand shows soft tissue swelling but no radiopaque foreign body or soft tissue gas. In the ED, given IV Zosyn. He will be admitted for further management of cellulitis due to cat bite. Review of Systems 2 Review of Systems: Yes all other systems are reviewed and are negative [facility] Medical History Diverticulitis Social History Alcohol intake: never Smoked in Last 30 Days: No Use of substances other than those prescribed or required for medical reasons: Yes Substance Use Type: Marijuana Substance Use Frequency: Occasionally Advance Directives: No Advance Directives Information Provided: No Do you have a plan to hurt others: No Plan Meds Allergies Allergy/AdvReac Type Severity Reaction Status Date / Time No Known Drug Allergies Allergy Mild NONE Verified 04/01/24 14:33 [NO KNOWN DRUG ALLERGIES] Active Medications: Current Medications Acetaminophen (Acetaminophen 325 Mg Tablet) 650 mg PO Q6H PRN PRN Reason: Pain, Mild (Pain Scale 1-3), fever or headache Calcium Carbonate (Calcium Carbonate 750 Mg Tab.Chew) 750 mg PO Q4H PRN PRN Reason: Heartburn Enoxaparin Sodium (Enoxaparin Sodium 40 Mg/0.4 Ml Syringe) 40 mg SUBCUT Q24H GARRY Ampicillin Sodium/Sulbactam (Sodium 3 gm/ Sodium Chloride) 100 mls @ 200 mls/hr IV Q6H GARRY Vancomycin HCl (Vancomycin/Ns) 2,000 mg in 500 mls @ 250 mls/hr IV ONCE ONE Stop: 04/01/24 19:59 Magnesium Hydroxide (Milk Of Magnesia 30 Ml Oral.Susp) 30 ml PO DAILY PRN PRN Reason: Constipation Melatonin (Melatonin 3 Mg Tablet) 6 mg PO BEDTIME PRN PRN Reason: Insomnia Morphine Sulfate (Morphine Sulfate 4 Mg/Ml Cartridge) 4 mg IVPUSH Q4H PRN; Protocol PRN Reason: Pain, Severe (Pain Scale 7-10) Oxycodone HCl (Oxycodone Hcl Immed Release 5 Mg Tablet) 5 mg PO Q6H PRN PRN Reason: Pain, Moderate(Pain Scale 4-6) Pharmacy Consult (Consult Rx Vancomycin Dosing) 1 each MISCELLANE DAILY PRN PRN Reason: Consult order Sodium Chloride (0.9 % Sodium Chloride Flush 3 Ml Syringe) 3 ml [facility]FLUSH [facility] Home Medications ?Medication ?Instructions ?Recorded ?Confirmed ?Last Taken ?Type ibuprofen 200 mg tablet 400 - 600 mg PO Q6H PRN Pain 04/01/24 04/01/24 Unknown History Physical Exam 2 Vital Signs and Narrative: Vital Signs: Last Vital Signs Temp 97.9 F 04/01/24 14:32 Pulse 84 04/01/24 14:32 Resp 16 04/01/24 14:32 BP 142/88 H 04/01/24 14:32 Pulse Ox 99 04/01/24 14:32 O2 Del Method Room Air 04/01/24 14:32 BMI result Body Mass Index 25.6 Constitutional - Awake and Alert, No apparent distress Eyes - PERRLA, EOMI Cardiovascular - S1S2, RRR, No edema Respiratory - Normal lung expansion, Normal respiratory effort, No respiratory distress, CTA bilaterally Extremities - no calf tenderness bilaterally, no swelling Musculoskeletal - unable to close right fist, full ROM wrist Skin - Warm/Dry. Significant warmth, erythema and swelling of the right hand with multiple puncture wounds, most prominent on the dorsum of the right hand without purulent drainage. No lymphangitic streaking Neurological - Alert & oriented x3 Psychological - Appropriate affect Results Labs 04/01/24 15:03 04/01/24 15:03 Labs: Laboratory Results - last 24 hr 04/01/24 15:03 MCV 87.5 MCH 29.9 MCHC 34.2 RDW 12.3 Plt Count 289 MPV 10.6 Immature Gran % (Auto) 0.3 Neut % (Auto) 75.4 H Lymph % (Auto) 14.8 L [place] % (Auto) 7.6 Eos % (Auto) 1.6 Baso % (Auto) 0.3 Lymph # (Auto) 2.2 [place] # (Auto) 1.1 Eos # (Auto) 0.2 Baso # (Auto) 0.0 Abs Immat Gran (auto) 0.05 H Absolute Neuts (auto) 11.1 H Absolute Nucleated RBC 0.000 Nucleated RBC % (auto) 0.0 Anion Gap 15 Estim Creat Clear Calc 106.9 Estimated GFR > 60 Random Glucose 98 Calcium 9.6 Total Bilirubin 0.5 AST 15 ALT 8 Alkaline Phosphatase 56 Total Protein 8.5 H Albumin 4.6 Imaging Radiologist's Impressions: Impressions Hand/Wrist X-Ray 04/01/24 14:54 IMPRESSION: Diffuse soft tissue swelling about the hand. No radiopaque foreign body or soft tissue gas. Assessment and Plan (1) Cellulitis: Status: Acute (2) Cat bite: Status: Acute Plan 38-year-old male with out any significant past medical history admitted for further management of cat bite with cellulitis #Acute cellulitis R hand due to cat bite -xr R hand shows soft tissue swelling. Check CT hand w/ contrast to evaluate for abscess -leukocytosis 14.7. CRP elevated, ESR pending -IV unasyn and vanco to cover for possible pasteurella and MRSA (initiated 04/01) -Ice packs -pain management using pain scale -ortho consult -No sepsis at time of admission. Follow CBC, cultures -Low risk for rabies. Offered vaccine series/immunoglobulin. Pt declines. Cat acting normally, strictly indoor but vaccines not UTD. Agree to quarantine cat x 10 days. For any abnormal behavior, will report and have series/immunoglobulin administered. TDAP updated dvt prophylaxis- lovenox full code pt requires inpt stay at least 2 midnights for management of cellulitis of R hand 2/2 to cat bite with significant swelling and erythema of dominant hand requiring IV abx and expert consultation Quality Stroke Does the patient have a stroke diagnosis?: No VTE Prior VTE?: No VTE Risk Level:: Medical - moderate - high VTE Device Contraindication: Treatment Not Indicated VTE Drug Contraindication: N/A - Med Ordered
[2024-04-01] MEDS: Morphine Sulfate 4 MG/ML CARTRIDGE IVPUSH ×2 (17:25→23:05)
[2024-04-01] MEDS: Enoxaparin Sodium 40 MG/0.4 ML SYRINGE SUBCUT (17:25)
[2024-04-01] MEDS: Diphth,Pertus(ACell),Tet Adult 0.5 ML SYRINGE IM (17:26)
[2024-04-01] MEDS: vancomycin/NS 2,000 MG/500 ML PLAST..BAG 250 MG IV (17:26)
[2024-04-01] MEDS: iohexoL 350 MG/ML 100 ML INFUS..BTL IV (17:51)
--- NOTE | 2024-04-01 17:59 | PHA.PROG ---
Admission Date/Time: April 01, 2024 17:05 Indication: skin Weight in k.986 kg Adjusted body weight in Kg: [place] body weight in Kg: Obesity Dosing Indication % IBW: Serum Creatinine - Last 168 Hours 04/01/24 15:03 Creatinine 1.13 Estimated CrCl and GFR - Last 168 Hours 04/01/24 15:03 Estim Creat Clear Calc 106.9 Estimated GFR > 60 Vancomycin Loading Dose: 2000mg x 1 Current Vancomycin Dosing Regimen: 1000mg Q12H Vancomycin Monitoring using AUC goal of 400 - 600 range with trough as surrogate marker: 449mg/L Date and Time for next Vancomycin Level to be drawn: 04/03/24 @1600 Pharmacist Comments on Vancomycin Plan: Predicted trough of 14.2mg/L; getting a level after 4 doses due to timing of medication Vancomycin dosing will take advantage of [employer] as a clinical decision support tool that uses Bayesian modeling to calculate individual patient's pharmacokinetic parameters and forecast the patient's drug concentration time course with the target goal AUC 24 range of 400 - 600 mg/L/hr.
[2024-04-01 18:08] LABS: C Reactive Protein 3.03 mg/dL (< or = 0.50)
--- NOTE | 2024-04-01 18:12 | PHA.MEDREC ---
Pharmacy Consult ? Medication Reconciliation Pharmacy has completed the medication reconciliation. spoke with patient to confirm. He states he did not take ibuprofen today.
[2024-04-01 18:49] LABS: Erythrocyte Sedimentation Rate 10 MM/HR (0-15)
[2024-04-01 19:26] VITALS: BP 138/84; PULSE 80; RESP 18; TEMP 36.8; O2SAT 99
--- NOTE | 2024-04-01 19:43 | PC.NURSE ---
Called overflow, spoke to Corinne RN gave RN to RN report, all questions answered, patient to go over to overflow once transport available.
[2024-04-01] MEDS: oxyCODONE HCl Immed Release 5 MG TABLET PO (20:25)
[2024-04-01] MEDS: Ampicillin Sodium/Sulbactam Na 3 GM in 0.9 % Sodium Chloride 100 ML IV (22:41)
[2024-04-01] MEDS: 0.9 % Sodium Chloride Flush 3 ML SYRINGE IVFLUSH (23:05)
[2024-04-02] VITALS (11 sets, daily range): BP systolic 121–150; BP diastolic 56–82; PULSE 53–76; RESP 14–20; TEMP 36.1–36.9; O2SAT 91–99
[2024-04-02 05:02] LABS: MANUAL DIFF FLAG NO
[2024-04-02 05:05] LABS: Basophils Percent Auto 0.3 % (0-2); Eosinophils Absolute Auto 0.3 X10*3/uL (0.0-0.4); Eosinophils Percent Auto 2.7 % (0-4); Hematocrit 43.6 % (42.0-52.0); Hemoglobin 14.4 g/dl (14.0-18.0); Imm Gran Abs Auto 0.03 X10*3/uL (0.00-0.03); Imm Gran Pct Auto 0.3 % (0.0-0.4); Lymphocytes Absolute Auto 2.5 X10*3/uL (1.2-4.9); Mean Corpuscular Hemoglobin 29.4 pg (27.0-33.0); Mean Corpuscular Volume 89.2 fL (80.0-98.0); Mean Platelet Volume 10.3 fL (9.4-12.4); Monocytes Percent Auto 9.2 % (2-11); Neutrophils Absolute Auto 7.1 x10*3/uL (2.0-8.3); Neutrophils Percent Auto 64.5 % (45-73); Platelet Count 243 X10*3/uL (160-400); Red Blood Count 4.89 X10*6/uL (4.60-5.80); Red Cell Distribution Width 12.4 % (11.0-16.0)
[2024-04-02 05:16] LABS: Anion Gap 11 (12-20); Blood Urea Nitrogen 10 mg/dL (9-16); Calcium 9.1 mg/dL (8.4-10.2); Carbon Dioxide 25 mmol/L (22-29); Chloride 108 mmol/L (96-108); Creatinine Clr Calc Pharmacy 115.1; Estimated Glomerular Filt Rate > 60; Glucose Random 104 mg/dL (60-115); Potassium 4.1 mmol/L (3.3-5.1); Sodium 140 mmol/L (135-145)
[2024-04-02] MEDS: Ampicillin Sodium/Sulbactam Na 3 GM in 0.9 % Sodium Chloride 100 ML IV ×4 (05:21→22:07)
[2024-04-02] MEDS: Morphine Sulfate 4 MG/ML CARTRIDGE IVPUSH ×2 (05:25→10:36)
[2024-04-02] MEDS: vancomycin HCL 1,000 MG in 0.9 % Sodium Chloride 250 ML 270 MG IV ×2 (05:50→18:20)
--- NOTE | 2024-04-02 07:48 | PM.HPOR ---
History of Present Illness History of Present Illness Date of Service: 04/02/24 Chief complaint: Cat bite with cellulitis dominant hand Narrative: Denzel Faye is a 38 year old RHD healthy male who was attacked by a cat and has extreme pain in his right ring finger MCP. This occurred last night. He is otherwise healthy and has no medical problems. He denies additional pain. Review of Systems Review of Systems: Yes all other systems are reviewed and are negative Eyes: Eyes: Reports no additional eye complaints ENT: Reports system reviewed and no additional complaints, except as documented Cardiovascular: Cardiovascular: Reports no additional cardiovascular complaints Respiratory: Respiratory: Reports no additional respiratory complaints Gastrointestinal: Gastrointestinal: Reports no additional gastrointestinal complaints Musculoskeletal: Musculoskeletal: Reports as per HPI Integumentary/Breasts: Skin/Breast: Reports system reviewed and no additional complaints, except as docu Neurologic: Reports system reviewed and no additional complaints, except as documented and Reports as per HPI Psychiatric: Psychiatric: Reports no additional psychiatric complaints PMFSH Past Medical History Medical History Diverticulitis Social History Social History Alcohol intake: never Patient Tobacco Use Status: Never used Tobacco Smoked in Last 30 Days: No Use of substances other than those prescribed or required for medical reasons: Yes Substance Use Type: Marijuana Substance Use Frequency: Occasionally Advance Directives: No Advance Directives Information Provided: No Do you have a plan to hurt others: No Plan Nutrition Risks: No Nutritional Risk Meds Allergies Allergy/AdvReac Type Severity Reaction Status Date / Time No Known Drug Allergies Allergy Mild NONE Verified 04/01/24 14:33 [NO KNOWN DRUG ALLERGIES] Active Medications: Current Medications Acetaminophen (Acetaminophen 325 Mg Tablet) 650 mg PO Q6H PRN PRN Reason: Pain, Mild (Pain Scale 1-3), fever or headache Calcium Carbonate (Calcium Carbonate 750 Mg Tab.Chew) 750 mg PO Q4H PRN PRN Reason: Heartburn Enoxaparin Sodium (Enoxaparin Sodium 40 Mg/0.4 Ml Syringe) 40 mg SUBCUT Q24H [facility] Last Admin: 04/01/24 17:25 Dose: 40 mg Ampicillin Sodium/Sulbactam (Sodium 3 gm/ Sodium Chloride) 100 mls @ 200 mls/hr IV Q6H [facility] Last Infusion: 04/02/24 05:51 Dose: Infused Vancomycin HCl 1,000 mg/ (Sodium Chloride) 270 mls @ 270 mls/hr IV Q12H [facility] Last Infusion: 04/02/24 06:56 Dose: Infused Magnesium Hydroxide (Milk Of Magnesia 30 Ml Oral.Susp) 30 ml PO DAILY PRN PRN Reason: Constipation Melatonin (Melatonin 3 Mg Tablet) 6 mg PO BEDTIME PRN PRN Reason: Insomnia Morphine Sulfate (Morphine Sulfate 4 Mg/Ml Cartridge) 4 mg IVPUSH Q4H PRN; Protocol PRN Reason: Pain, Severe (Pain Scale 7-10) Last Admin: 04/02/24 05:25 Dose: 4 mg Oxycodone HCl (Oxycodone Hcl Immed Release 5 Mg Tablet) 5 mg PO Q6H PRN PRN Reason: Pain, Moderate(Pain Scale 4-6) Last Admin: 04/01/24 20:25 Dose: 5 mg Pharmacy Consult (Consult Rx Vancomycin Dosing) 1 each MISCELLANE DAILY PRN PRN Reason: Consult order Sodium Chloride (0.9 % Sodium Chloride Flush 3 Ml Syringe) [facility] Last Admin: 04/01/24 23:05 Dose: 3 ml Home Medications ?Medication ?Instructions ?Recorded ?Confirmed ?Last Taken ?Type ibuprofen 200 mg tablet 400 - 600 mg PO Q6H PRN Pain 04/01/24 04/01/24 Unknown History Physical Exam Vital Signs: Vital Signs: Last Vital Signs Temp 97.6 F 04/02/24 05:51 Pulse 54 04/02/24 05:51 Resp 18 04/02/24 05:51 BP 150/82 H 04/02/24 05:51 Pulse Ox 98 04/02/24 05:51 O2 Del Method Room Air 04/02/24 05:51 BMI result Body Mass Index 25.6 Const: General: cooperative, healthy appearing, no acute distress, well developed and alert HEENT: Head: Yes normal to inspection, Yes normocephalic and Yes atraumatic Mouth: moist mucous membranes Eyes: General: appearance normal, both eyes and all related structures EOM: EOMs intact bilaterally Chest: Other: no audible wheezing. Resp: Other: No audible wheezing Effort & Inspection: normal respiratory effort Cardio: Other: Radial pulse palpable with no rythmic abnormalities Back/Spine/Pelvis: Cervical Spine: normal cervical lordosis Skin: General skin exam: no rashes or lesions noted Neuro: General: no focal motor deficits Extrem: Other: Small puncture wound over distal RF metacarpal. Severe pain with passive motion of the MCP of the RF. TTP. Otherwise nl exam Psych: Appearance: grossly normal and well kempt Mental Status: mental status grossly normal Speech and movement: Normal speech and movement present Affect: normal affect Attitude: cooperative Results Labs 04/02/24 04:56 04/02/24 04:56 Labs: Abnormal lab results 04/01/24 04/02/24 Range/Units 15:03 04:56 WBC 14.7 H 11.0 H (4.8-10.8) X10*3/uL Neut % (Auto) 75.4 H (45-73) % Lymph % (Auto) 14.8 L (20-40) % Abs Immat Gran (auto) 0.05 H (0.00-0.03) X10*3/uL Absolute Neuts (auto) 11.1 H (2.0-8.3) x10*3/uL Anion Gap 11 L (12-20) C-Reactive Protein 3.03 H (< or = 0.50) mg/dL Total Protein 8.5 H (6.5-8.0) g/dL H & H 04/01/24 04/02/24 Range/Units 15:03 04:56 Hgb 15.8 14.4 (14.0-18.0) g/dl Hct 46.2 43.6 (42.0-52.0) % All other labs normal. Assessment and Plan (1) Cat bite: Status: Acute Plan This is a 38 yo M with a cat bite involving the right ring finger MCP joint. This is a fight bite equivalent with a puncture wound just proximal to the joint and he has exquisite pain with motion of the joint. I recommend open exploration and p[ossible arthrotomy and irrigation rigth ring finger MCP. I explained this to him and I discussed the risks benefits and alternatives including but not limited to the risk of pain, infection, stiffness, need for further surgery as well as potential medical complications. He is otherwise healthy. He expressed understanding and his questions were answered. Quality Stroke Does the patient have a stroke diagnosis?: No VTE Prior VTE?: No VTE Risk Level:: Medical - moderate - high VTE Device Contraindication: Treatment Not Indicated VTE Drug Contraindication: N/A - Med Ordered Procedures Date of Service Date of Service: 04/02/24
--- NOTE | 2024-04-02 08:19 | HO.PM.IMPN ---
Subjective Subjective Date of Service: 04/02/24 Interval History: right hand pain and swelling Physical Exam Vital Signs: Vital Signs: Last Vital Signs Temp 97.6 F 04/02/24 05:51 Pulse 54 04/02/24 05:51 Resp 18 04/02/24 05:51 BP 150/82 H 04/02/24 05:51 Pulse Ox 98 04/02/24 05:51 O2 Del Method Room Air 04/02/24 05:51 BMI result Body Mass Index 25.6 right hand swollen, tender Objective Data Active Medications Acetaminophen (Acetaminophen 325 Mg Tablet) 650 mg PO Q6H PRN PRN Reason: Pain, Mild (Pain Scale 1-3), fever or headache Calcium Carbonate (Calcium Carbonate 750 Mg Tab.Chew) 750 mg PO Q4H PRN PRN Reason: Heartburn Enoxaparin Sodium (Enoxaparin Sodium 40 Mg/0.4 Ml Syringe) 40 mg SUBCUT Q24H [facility] Last Admin: 04/01/24 17:25 Dose: 40 mg Documented By: MARGO Ampicillin Sodium/Sulbactam (Sodium 3 gm/ Sodium Chloride) 100 mls @ 200 mls/hr IV Q6H [facility] Last Infusion: 04/02/24 05:51 Dose: Infused Documented By: SHANDRA Vancomycin HCl 1,000 mg/ (Sodium Chloride) 270 mls @ 270 mls/hr IV Q12H [facility] [place] Last Infusion: 04/02/24 06:56 Dose: Infused Documented By: SHANDRA Magnesium Hydroxide (Milk Of Magnesia 30 Ml Oral.Susp) 30 ml PO DAILY PRN PRN Reason: Constipation Melatonin (Melatonin 3 Mg Tablet) 6 mg PO BEDTIME PRN PRN Reason: Insomnia Morphine Sulfate (Morphine Sulfate 4 Mg/Ml Cartridge) 4 mg IVPUSH Q4H PRN; Protocol PRN Reason: Pain, Severe (Pain Scale 7-10) Last Admin: 04/02/24 05:25 Dose: 4 mg Documented By: SHANDRA Oxycodone HCl (Oxycodone Hcl Immed Release 5 Mg Tablet) 5 mg PO Q6H PRN PRN Reason: Pain, Moderate(Pain Scale 4-6) Last Admin: 04/01/24 20:25 Dose: 5 mg Documented By: SHANDRA Pharmacy Consult (Consult Rx Vancomycin Dosing) 1 each MISCELLANE DAILY PRN PRN Reason: Consult order Sodium Chloride (0.9 % Sodium Chloride Flush 3 Ml Syringe) 3 ml IVFLUSH QSHIFT [facility] [place] Last Admin: 04/01/24 23:05 Dose: 3 ml Documented By: SHANDRA Labs 04/02/24 04:56 04/02/24 04:56 Labs: Laboratory Results - last 24 hr 04/01/24 04/02/24 15:03 04:56 MCV 87.5 89.2 MCH 29.9 29.4 MCHC 34.2 33.0 RDW 12.3 12.4 Plt Count 289 243 MPV 10.6 10.3 Immature Gran % (Auto) 0.3 0.3 Neut % (Auto) 75.4 H 64.5 Lymph % (Auto) 14.8 L 23.0 [place] % (Auto) 7.6 9.2 Eos % (Auto) 1.6 2.7 Baso % (Auto) 0.3 0.3 Lymph # (Auto) 2.2 2.5 [place] # (Auto) 1.1 1.0 Eos # (Auto) 0.2 0.3 Baso # (Auto) 0.0 0.0 Abs Immat Gran (auto) 0.05 H 0.03 Absolute Neuts (auto) 11.1 H 7.1 Absolute Nucleated RBC 0.000 0.000 Nucleated RBC % (auto) 0.0 0.0 ESR 10 Anion Gap 15 11 L Estim Creat Clear Calc 106.9 115.1 Estimated GFR > 60 > 60 Random Glucose 98 104 Calcium 9.6 9.1 Total Bilirubin 0.5 AST 15 ALT 8 Alkaline Phosphatase 56 C-Reactive Protein 3.03 H Total Protein 8.5 H Albumin 4.6 Assessment and Plan (1) Cat bite: Status: Acute Plan 38-year-old male admitted with cat bite Acute cellulitis of the right hand due to cat bite Continue IV Unasyn Ortho to bring to the OR today DVT prophylaxis Lovenox Full Code reason for continued hospitalization:iv abx and surgical intervention Quality Stroke Does the patient have a stroke diagnosis?: No VTE Prior VTE?: No VTE Risk Level:: Medical - moderate - high VTE Device Contraindication: Treatment Not Indicated VTE Drug Contraindication: N/A - Med Ordered
[2024-04-02] MEDS: 0.9 % Sodium Chloride Flush 3 ML SYRINGE IVFLUSH ×3 (08:47→22:13)
--- NOTE | 2024-04-02 10:00 | P.CONAN_ITS ---
HPI - Anesthesia Eval Consult details Narrative: cellulitis PMFSH Active Problems Active Problems: All Active Problems Cellulitis (Acute) Cat bite (Acute) Past Medical History Medical History Diverticulitis Family History Family history of problems with anesthesia: No Surgical History History of Problems with Anesthesia: No Social History Social History Household Members: Significant Other and Other Household Members Other:: Girlfriend's daughter . Housing: House Do you presently have visiting nurse or other home services: No Alcohol intake: never Patient Tobacco Use Status: Never used Tobacco Substance Use Type: Marijuana Meds Allergies Allergy/AdvReac Type Severity Reaction Status Date / Time No Known Drug Allergies Allergy Mild NONE Verified 04/01/24 14:33 [NO KNOWN DRUG ALLERGIES] Active Medications: Current Medications Acetaminophen (Acetaminophen 325 Mg Tablet) 650 mg PO Q6H PRN PRN Reason: Pain, Mild (Pain Scale 1-3), fever or headache Calcium Carbonate (Calcium Carbonate 750 Mg Tab.Chew) 750 mg PO Q4H PRN PRN Reason: Heartburn Enoxaparin Sodium (Enoxaparin Sodium 40 Mg/0.4 Ml Syringe) 40 mg SUBCUT Q24H [facility] Last Admin: 04/01/24 17:25 Dose: 40 mg Ampicillin Sodium/Sulbactam (Sodium 3 gm/ Sodium Chloride) 100 mls @ 200 mls/hr IV Q6H [facility] Last Infusion: 04/02/24 05:51 Dose: Infused Vancomycin HCl 1,000 mg/ (Sodium Chloride) 270 mls @ 270 mls/hr IV Q12H [facility] Last Infusion: 04/02/24 06:56 Dose: Infused Magnesium Hydroxide (Milk Of Magnesia 30 Ml Oral.Susp) 30 ml PO DAILY PRN PRN Reason: Constipation Melatonin (Melatonin 3 Mg Tablet) 6 mg PO BEDTIME PRN PRN Reason: Insomnia Morphine Sulfate (Morphine Sulfate 4 Mg/Ml Cartridge) 4 mg IVPUSH Q4H PRN; Protocol PRN Reason: Pain, Severe (Pain Scale 7-10) Last Admin: 04/02/24 05:25 Dose: 4 mg Oxycodone HCl (Oxycodone Hcl Immed Release 5 Mg Tablet) 5 mg PO Q6H PRN PRN Reason: Pain, Moderate(Pain Scale 4-6) Last Admin: 04/01/24 20:25 Dose: 5 mg Pharmacy Consult (Consult Rx Vancomycin Dosing) 1 each MISCELLANE DAILY PRN PRN Reason: Consult order Sodium Chloride (0.9 % Sodium Chloride Flush 3 Ml Syringe) 3 ml IVFLUSH QSHIFT [facility] Last Admin: 04/02/24 08:47 Dose: 3 ml Home Medications ?Medication ?Instructions ?Recorded ?Confirmed ?Last Taken ?Type ibuprofen 200 mg tablet 400 - 600 mg PO Q6H PRN Pain 04/01/24 04/01/24 Unknown History Exam Height,Weight and Vital Signs: Height 6 ft 3 in Weight 92.986 kg Last Vital Signs Temp 97.1 F 04/02/24 09:08 Pulse 68 04/02/24 09:08 Resp 14 04/02/24 09:08 BP 131/77 04/02/24 09:08 Pulse Ox 96 04/02/24 09:08 O2 Del Method Room Air 04/02/24 09:08 Pertinent Lab Results Pertinent Lab Results: Laboratory Tests 04/01/24 04/02/24 15:03 04:56 WBC 14.7 H 11.0 H RBC 5.28 4.89 Hgb 15.8 14.4 Hct 46.2 43.6 MCV 87.5 89.2 MCH 29.9 29.4 MCHC 34.2 33.0 RDW 12.3 12.4 Plt Count 289 243 MPV 10.6 10.3 Immature Gran % (Auto) 0.3 0.3 Neut % (Auto) 75.4 H 64.5 Lymph % (Auto) 14.8 L 23.0 [place] % (Auto) 7.6 9.2 Eos % (Auto) 1.6 2.7 Baso % (Auto) 0.3 0.3 Lymph # (Auto) 2.2 2.5 [place] # (Auto) 1.1 1.0 Eos # (Auto) 0.2 0.3 Baso # (Auto) 0.0 0.0 Abs Immat Gran (auto) 0.05 H 0.03 Absolute Neuts (auto) 11.1 H 7.1 Absolute Nucleated RBC 0.000 0.000 Nucleated RBC % (auto) 0.0 0.0 ESR 10 Sodium 142 140 Potassium 3.8 4.1 Chloride 105 108 Carbon Dioxide 26 25 Anion Gap 15 11 L BUN 13 10 Creatinine 1.13 1.05 Estim Creat Clear Calc 106.9 115.1 Estimated GFR > 60 > 60 Random Glucose 98 104 Calcium 9.6 9.1 Total Bilirubin 0.5 AST 15 ALT 8 Alkaline Phosphatase 56 C-Reactive Protein 3.03 H Total Protein 8.5 H Albumin 4.6 Airway Mallampati Class: I TM Dist: >3cm Neck ROM: Full Loose/Missing/Broken Teeth: No Heart: RRR Lungs: CTA Assessment and Plan Assessment Anesthesia Assessment: Anesthesia Plan Discussed and Chart Reviewed Final Anesthetic Review Family History of Problems with Anesthesia: No History of Problems with Anesthesia: No NPO: Yes ASA Class: I and Emergency Final Preanesthetic Review: No Changes in Pt Med Stat, Meds/Allgs Chart Reviewed, Consent Obtained/Reviewed and Anes Risks/Benef Reviewed Patient Risk: Low Procedure Risk: Low Anesthetic Plan Anesthetic Plan: GA Disposition: Standard PACU
--- NOTE | 2024-04-02 11:07 | PC.NURSE ---
1105- Patient picked up for transport to OR. IV flushed- intact and patent.
--- NOTE | 2024-04-02 11:27 | MHC.SHP ---
Pre-Procedural Eval Section A - 24 Hr Update-Section A only Date of Service: 04/02/24 The patient is an INPATIENT: Yes Changes since office visit: No Cold of Flu in the past 2 weeks, No New Medical Problems, No Changes in Medication and No Patient answered all questions The patient has been examined within 24 hours of the surgical procedure. The History & Physical has been completed within 30 days and I have reviewed it.: Yes Section B - Complete if H&P > 30 days Chief Complaint: Cat bite with cellulitis dominant hand Allergies: Allergies Allergy/AdvReac Type Severity Reaction Status Date / Time No Known Drug Allergies Allergy Mild NONE Verified 04/01/24 14:33 [NO KNOWN DRUG ALLERGIES] Plan I have reviewed the history and physical and performed a pertinent physical examination on my patient. No changes have occurred unless specified. Time Spent With Patient Time: Total time managing care of this patient today ____ minutes.
--- NOTE | 2024-04-02 12:40 | P.BOP_ITS ---
Brief Operative Note Date of Service: 04/02/24 Pre-op diagnosis: septic arthritis right rf mcp Post-op diagnosis: same Procedure: right rf mcp arthrotomy with debridement and irrigation Surgeon: Sandip Mckeon MD Anesthesia: GLMA and local Was an Supervisor [employer] used for this Procedure?: No Estimated blood loss (mL): 0 Tourniquet time (min): 35 IV fluids (mL): 500 Pathology: none sent Condition: stable Disposition: PACU
[2024-04-02] MEDS: Acetaminophen 325 MG TABLET 650 MG PO (13:40)
[2024-04-02] MEDS: oxyCODONE HCl Immed Release 5 MG TABLET PO (13:41)
--- NOTE | 2024-04-02 13:57 | PC.NURSE ---
PRN Tylenol 650 mg given to pt for 5/10 pain at pt request.
--- NOTE | 2024-04-02 15:47 | MHC.CM.PN ---
PT REPORTS HE LIVES WITH HIS GIRLFRIEND AND IS INDEPENDENT WITH CARE HE DENIES USE OF DME OR HOME SERVICES HE DECLINES TO COMPLETE A HCP HE DOES NOT HAVE A PCP, HMG LIST PROVIDED DCP: HOME NO SERVICES VIA SELF TRANSPORT
[2024-04-03 03:57] VITALS: BP 114/67; PULSE 71; RESP 16; TEMP 36.3; O2SAT 94
[2024-04-03] MEDS: Ampicillin Sodium/Sulbactam Na 3 GM in 0.9 % Sodium Chloride 100 ML IV ×2 (04:35→11:05)
[2024-04-03] MEDS: vancomycin HCL 1,000 MG in 0.9 % Sodium Chloride 250 ML 270 MG IV (05:22)
[2024-04-03 05:51] LABS: Hematocrit 42.6 % (42.0-52.0); Hemoglobin 14.5 g/dl (14.0-18.0); Mean Corpuscular Hemoglobin 29.8 pg (27.0-33.0); Mean Corpuscular Volume 87.5 fL (80.0-98.0); Mean Platelet Volume 10.7 fL (9.4-12.4); Platelet Count 287 X10*3/uL (160-400); Red Blood Count 4.87 X10*6/uL (4.60-5.80); Red Cell Distribution Width 11.9 % (11.0-16.0); White Blood Count 16.2 X10*3/uL (4.8-10.8)
[2024-04-03 06:03] LABS: Anion Gap 14 (12-20); Blood Urea Nitrogen 13 mg/dL (9-16); Calcium 9.2 mg/dL (8.4-10.2); Carbon Dioxide 23 mmol/L (22-29); Chloride 106 mmol/L (96-108); Creatinine Clr Calc Pharmacy 142.2; Estimated Glomerular Filt Rate > 60; Glucose Fasting 100 mg/dL (60-99); Potassium 4.1 mmol/L (3.3-5.1); Sodium 139 mmol/L (135-145)
[2024-04-03 08:01] VITALS: BP 133/64; PULSE 89; RESP 16; TEMP 36.3; O2SAT 100
--- NOTE | 2024-04-03 08:40 | P.PNOP_ITS ---
Subjective Subjective Date of Service: 04/03/24 Interval history: POD 1 sp Rt hand I&D no overnight events resting in bed, less pain Physical Exam Vital Signs: Vital Signs: Last Vital Signs Temp 97.4 F 04/03/24 08:01 Pulse 89 04/03/24 08:01 Resp 16 04/03/24 08:01 BP 133/64 04/03/24 08:01 Pulse Ox 100 04/03/24 08:01 O2 Del Method Room Air 04/03/24 08:01 O2 Flow Rate 3 04/02/24 13:20 BMI result Body Mass Index 25.6 Const: General: cooperative, healthy appearing, no acute distress, well de veloped and alert HEENT: Head: Yes normal to inspection, Yes normocephalic and Yes atraumatic Mouth: moist mucous membranes Eyes: General: appearance normal, both eyes and all related structures EOM: EOMs intact bilaterally Chest: Other: no audible wheezing. Resp: Other: No audible wheezing Effort & Inspection: normal respiratory effort Cardio: Other: Radial pulse palpable with no rythmic abnormalities Back/Spine/Pelvis: Cervical Spine: normal cervical lordosis Skin: General skin exam: no rashes or lesions noted Neuro: General: no focal motor deficits Extrem: Other: incision over distal RF metacarpal is clean and dry, no active drainage. He is able to tolerate passive motion of the MCP of the RF. TTP. Otherwise nl exam Psych: Appearance: grossly normal and well kempt Mental Status: mental status grossly normal Speech and movement: Normal speech and movement present Affect: normal affect Attitude: cooperative Procedures Date of Service Date of Service: 04/03/24 Progress Note: A&P Assessment and plan (1) Cat bite: Status: Acute (2) Cellulitis: Status: Acute Plan OT for ROM ID consult for abx rec's f/u in 1 week with orthopedics Daily dry dressing changes Time Spent With Patient Time: Total time managing care of this patient today ____ minutes. Quality Stroke Does the patient have a stroke diagnosis?: No VTE Prior VTE?: No VTE Risk Level:: Medical - moderate - high VTE Device Contraindication: Treatment Not Indicated VTE Drug Contraindication: N/A - Med Ordered
[2024-04-03] MEDS: 0.9 % Sodium Chloride Flush 3 ML SYRINGE IVFLUSH (09:03)
[2024-04-03 09:55] VITALS: O2SAT 100
--- NOTE | 2024-04-03 11:00 | MHC.CM.PN ---
EMR REVIEWED AND PER MD ROUNDS, PT MAY BE READY FOR DC HOME AFTER HE IS ASSESSED BY I.D. CM WILL CONTINUE TO FOLLOW.
--- NOTE | 2024-04-03 14:34 | HO.POSTANES ---
Post Anesthesia Evaluation Post Anesthesia Evaluation Date of Service: 04/02/24 Vital Signs: Vital Signs Temp Pulse Resp BP Pulse Ox O2 Del Method 04/03/24 09:55 100 Room Air 04/03/24 08:01 97.4 F 89 16 133/64 100 Room Air 04/03/24 03:57 97.4 F 71 16 114/67 94 Room Air Anesthesia: General Mental Status: Awake Pain Control: Satisfactory Nausea/Vomiting: None Hydration: Adequate Anesthesia-Related Issues: No Anes. Related Issues
--- NOTE | 2024-04-03 14:35 | P.DS_ITS ---
DS: Providers Provider Date of Service: 04/03/24 Date of admission: 04/01/24 17:05 Primary care physician: None Physician Consults: 04/03/24 08:40 Consult to Infectious Diseases Routine Consulting [place] [facility] [place] [facility] Reason for consultation: right hand cat bite-abx recs DS: Diagnosis Discharge Diagnosis (1) Cat bite: Status: Acute (2) Cellulitis: Status: Acute DS: Summary Hospital Course Hospital Course: from initial hpi: 38-year-old male with out any significant past medical history presented to the ED earlier today for evaluation of cat bite to the dorsum of the right hand that occurred 3 days ago. He reports his strictly indoor cat, whose last rabies vaccine was 5 years ago, got into a fight with his girlfriend's CT, vaccine status unknown but also strictly indoor cat. He attempted to separate the 2 fighting animals and was bit by his own cat on the dorsum of the right hand. He is right-hand dominant. He began noticing redness and swelling yesterday that significantly worsened today prompting his visit to the ER. Reports cats have otherwise been behaving normally. Denies any purulent drainage or fevers. 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 He has a leukocytosis of 14.7. He is afebrile, vitals stable. Renal function electrolytes normal. X-ray of the right hand shows soft tissue swelling but no radiopaque foreign body or soft tissue gas. In the ED, given IV Zosyn. He will be admitted for further management of cellulitis due to cat bite. hospital course: Patient was admitted for cat bite complicated by cellulitis. He was treated with vancomycin and Unasyn. He was seen by Orthopedics who performed debridement in the OR. He was seen by Occupational therapy recommended outpatient follow up. He was seen by infectious disease who recommended 10 days of augmentin. Patient is feeling better will be discharged home Time Attestation Discharge Coordination Time (in mins): 34 Quality: Safe Use of Opioids Does Pt have an Active Cancer Diagnosis on the Problem List?: No Quality: Stroke Does the patient have a stroke diagnosis?: No Physical Exam Vital Signs: Vital Signs: Last Vital Signs Temp 97.4 F 04/03/24 08:01 Pulse 89 04/03/24 08:01 Resp 16 04/03/24 08:01 BP 133/64 04/03/24 08:01 Pulse Ox 100 04/03/24 09:55 O2 Del Method Room Air 04/03/24 09:55 O2 Flow Rate 3 04/02/24 13:20 BMI result Body Mass Index 25.6 Const: General: cooperative, healthy appearing, no acute distress, well developed and alert HEENT: Head: Yes normal to inspection, Yes normocephalic and Yes atraumatic Mouth: moist mucous membranes Eyes: General: appearance normal, both eyes and all related structures EOM: EOMs intact bilaterally Chest: Other: no audible wheezing. Resp: Other: No audible wheezing Effort & Inspection: normal respiratory effort Cardio: Other: Radial pulse palpable with no rythmic abnormalities Back/Spine/Pelvis: Cervical Spine: normal cervical lordosis Skin: General skin exam: no rashes or lesions noted Neuro: General: no focal motor deficits Extrem: Other: incision over distal RF metacarpal is clean and dry, no active drainage. He is able to tolerate passive motion of the MCP of the RF. TTP. Otherwise nl exam Psych: Appearance: grossly normal and well kempt Mental Status: mental status grossly normal Speech and movement: Normal speech and movement present Affect: normal affect Attitude: cooperative DS: Data Data Completed and Pending Labs on day of discharge: Laboratory Results - last 24 hr 04/03/24 05:17 WBC 16.2 H RBC 4.87 Hgb 14.5 Hct 42.6 MCV 87.5 MCH 29.8 MCHC 34.0 RDW 11.9 Plt Count 287 MPV 10.7 Absolute Nucleated RBC 0.000 Nucleated RBC % (auto) 0.0 Sodium 139 Potassium 4.1 Chloride 106 Carbon Dioxide 23 Anion Gap 14 BUN 13 Creatinine 0.85 Estim Creat Clear Calc 142.2 Estimated GFR > 60 Fasting Glucose 100 H Calcium 9.2 Preliminary micro results at discharge 04/02/24 Unknown Routine Culture - Preliminary Finger Right Ring Gram negative herbie 04/01/24 15:03 Blood Culture - Preliminary Blood - Venous No growth after 24 hours. 04/01/24 15:03 Blood Culture - Preliminary Blood - Venous No growth after 24 hours. Discharge Plan Discharge Anticipated Discharge Date/Time: 04/03/24 14:34 Patient Disposition: Home, Self-Care Discharge Diagnosis: cat bite Referrals: Kaitlyn Sesay PA-C [Physician Marble Cutter Operator] - 1 Week (-04/10/24 09:45 [facility] [place] [facility] Kaitlyn Sesay PA-C) Physician,None [Primary Care Provider] - 1 Week Discharge Medications: New oxycodone 5 mg Tablet 5 mg PO Q6H PRN (Reason: Pain, Moderate(Pain Scale 4-6)) Qty: 10 0RF Rx Instructions: Partial Fill upon patient request. amoxicillin-pot clavulanate 875-125 mg tablet 1 tab PO Q12H Qty: 20 0RF Continued ibuprofen 200 mg Tablet 400 - 600 mg PO Q6H PRN (Reason: Pain) Discharge Orders: Discharge Order (Routine); Ordered 04/03/24 Ordered By: Karthik Hurst Diet: Advance to usual diet Activity on Discharge: As tolerated Stand Alone Forms: Patient Portal Discharge page Print Language: Upper Sorbian Care Plan Goals: recovery Health Concerns: cat bite Plan of Treatment: Daily dry dressing changes Assessment: see above
[2024-04-03 14:59] VITALS: BP 118/63; PULSE 85; RESP 18; TEMP 36.8; O2SAT 97
--- NOTE | 2024-04-03 15:42 | MHC.CM.PN ---
DP: PT HAS BEEN MEDICALLY CLEARED FOR DC HOME, NO SERVICES. PT HAS OWN RIDE HOME.
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
== END 2024-04-03 16:19 | disposition home or self-care (01) | DRG 316 ==
LOC: HO.ED 16:04 → HO.EDOVER 17:19 → HO.S3 04-02 08:09
PROVIDERS: Orthopaedic Surgery; Physician Assistant Medical; Admitting Provider Physician Assistant; Emergency Provider Emergency Medicine Emergency Medical Services; Visit Provider Internal Medicine
PROC: 0RBU0ZZ Excision of Right Metacarpophalangeal Joint, Open Approach (ICD-10-PCS; principal; 2024-04-02 11:30)
DX: S61.451A Open bite of right hand, initial encounter (principal); L03.113 Cellulitis of right upper limb; W55.01XA Bitten by cat, initial encounter
CPT/HCPCS: 36415; 73110; 73130; 73201; 80048; 80053; 85025; 85027; 85652; 86140; 87040; 87070; 87077; 87186; 87205; 90715; 97165; 99285; J0295; J1100; J1650; J1885; J2270; J2405; J2543; J2704; J2795; J3010; J3370; Q9967

== ENCOUNTER → 2024-04-01 17:05 | Outpatient (BNV) | payer BC, SELFPAY | PROVIDERS: Admitting Provider Physician Assistant; Emergency Provider Emergency Medicine Emergency Medical Services; Visit Provider Internal Medicine | DX: L03.90 Cellulitis, unspecified (principal); W55.01XA Bitten by cat, initial encounter | CPT/HCPCS: 99222 ==

== ENCOUNTER → 2024-04-01 17:05 | Outpatient (BNV) | payer BC, SELFPAY | PROVIDERS: Admitting Provider Physician Assistant; Emergency Provider Emergency Medicine Emergency Medical Services; Visit Provider Physician Assistant | DX: L03.113 Cellulitis of right upper limb (principal); W55.01XA Bitten by cat, initial encounter | CPT/HCPCS: 99222; 99232; 99239 ==

== ENCOUNTER 2024-04-10 09:42 | Outpatient (AMB) | payer BC, SELFPAY ==
--- NOTE | 2024-04-10 09:48 | MHC.OFFVIS ---
Vital Signs 04/10/24 09:50 Height 6 ft 3 in Weight 205 lb BMI 25.6 Intake Visit Reasons: PO s/p Rt hand cat bite I&D 04/02/24 NE Intake Note: Denzel a 38 year old male who presents today for a post operative right hand I&D on 04/02/24 NE. Patient reports he is doing well, states pain has been tolerable. He continues to have swelling. Allergies No Known Drug Allergies [NO KNOWN DRUG ALLERGIES] Allergy (Mild, Verified 04/10/24 09:52) NONE Medication List - Last Reconciled 04/10/24 by Kaitlyn Sesay PA-C amoxicillin-pot clavulanate 875-125 mg 1 tab PO Q12H ibuprofen 400 - 600 mg PO Q6H PRN HPI HPI PO s/p Rt hand cat bite I&D 04/02/24 NE: Details: 38-year-old male who returns to the office today for post-op right hand cat bite I&D, 04/02/[address] Mckeon. He states he has swelling and tolerable pain in his hand however he is doing well otherwise. He has no other concerns today. [facility] Medical History Diverticulitis Social History Household Members: Significant Other and Other Household Members Other:: Girlfriend's daughter . Housing: House Do you presently have visiting nurse or other home services: No Alcohol intake: never Patient Tobacco Use Status: Never used Tobacco Substance Use Type: Marijuana service: No Review of Systems Const All systems reviewed & are unremarkable except as noted in HPI and below Physical Exam Vital Signs: BMI result Body Mass Index 25.6 Extrem Other: Right hand: Normal to inspection. Incision clean, dry and intact. He has mild swelling along the incision site along the dorsum of hand. No pain or swelling over the palmar aspect of the hand or web spaces. He is able to flex and extend the digits, he does have weakness with making a fist. NVI. Assessment & Plan Assessment & Plan (1) Cat bite: Code(s): W55.01XA - Bitten by cat, initial encounter Category: Medical (2) Cellulitis: Code(s): L03.90 - Cellulitis, unspecified Category: Medical Plan We will remove every other suture and he will continue with the antibiotics. He will keep the incision clean and dry and perform ROM of hand. He will remain out of work till I see him back in 7-10 days for a wound check, sooner if needed. Patient Instructions: Scribed for Kaitlyn Sesay PA-C, by Gio Davenport manager medical device, on 04/10/2024 at 9:45 AM EST.? I, Kaitlyn Sesay PA-C, have personally reviewed and agree with the information entered by the scribe. Coding Level of Care Code Global (08365) Diagnoses Cat bite W55.01XA Cellulitis L03.90
[2024-04-10 09:50] VITALS: BMI 25.6
== END 2024-04-10 10:35 | disposition home or self-care (01) ==
PROVIDERS: Visit Provider Physician Assistant
DX: L03.90 Cellulitis, unspecified (principal); W55.01XA Bitten by cat, initial encounter
CPT/HCPCS: 99024

== ENCOUNTER → 2024-04-10 09:42 | Outpatient (BNVA) | payer BC, SELFPAY | PROVIDERS: Visit Provider Physician Assistant ==

== ENCOUNTER 2024-04-17 08:46 | Outpatient (AMB) | payer BC, SELFPAY ==
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
[2024-04-17 08:52] VITALS: BMI 25.6
== END 2024-04-17 09:12 | disposition home or self-care (01) ==
PROVIDERS: Visit Provider Physician Assistant
DX: L03.90 Cellulitis, unspecified (principal); W55.01XA Bitten by cat, initial encounter
CPT/HCPCS: 99024

== ENCOUNTER → 2024-04-17 08:46 | Outpatient (BNVA) | payer BC, SELFPAY | PROVIDERS: Visit Provider Physician Assistant ==